=== PATIENT | male | born 1975 | race Caucasian/White ===

== ENCOUNTER 2022-12-23 19:59 | Emergency (ER) | payer OTHER ==
[~2022-12-23] VITALS: Ht 188 cm; Wt 77.1 kg
[2022-12-23 20:16] VITALS: BP_SYST 105; PULSE 58; RESP 16; TEMP 98.4; O2SAT 99
[2022-12-23] MEDS ORDERED: ACETAMINOPHEN 325 MG TABLET PO ONE (21:30)
--- NOTE | 2022-12-23 22:18 | NUR ---
Patient to ER CHAIR 2 to gown for evaluation. Side rails up.
--- NOTE | 2022-12-23 23:31 | NUR ---
ER at bedside examining patient.
[2022-12-23 23:38] VITALS: BP_SYST 112; PULSE 68; RESP 19; TEMP 98.4; O2SAT 99
--- NOTE | 2022-12-23 23:38 | NUR ---
Patient given written and verbal discharge instructions and verbalizes understanding. ER MD discussed with patient the results and treatment provided. Patient in stable condition. ID arm band removed. NO RX GIVEN Patient educated on pain management and to follow up with PMD. Pain Scale 0/10 Opportunity for questions provided and answered. Medication side effect fact sheet provided.
== END 2022-12-23 23:38 | disposition home or self-care (01) ==
LOC: SED 19:59
DX: S09.90XA Unspecified injury of head, initial encounter (principal); Z79.899 Other long term (current) drug therapy; W17.89XA Other fall from one level to another, initial encounter; Y93.39 Activity, other involving climbing, rappelling and jumping off; Y92.89 Other specified places as the place of occurrence of the external cause; Y99.8 Other external cause status
CPT/HCPCS: 70450-TC; 76376; 99284